=== PATIENT | male | born 1965 | race Caucasian/White ===

== ENCOUNTER → 2020-09-03 10:01 | Outpatient (CLI) | payer OTHER, SELFPAY ==
--- NOTE | ~2020-09-03 | MR_ITS ---
EXAMINATION: MR cervical spine wo con EXAM DATE: 09/03/2020 10:49 INDICATION: Neck pain with right hand paresthesia. TECHNIQUE: Multi-sequential, multiplanar MR images of the cervical spine were obtained without contra st. Axial T2, axial T2 MERGE sequence. Sagittal T1, T2, T2 fat saturation images also obtained. Th ere is no prior study for comparison. FINDINGS: The vertebral bodies are aligned in the AP dimension. Vertebral body and disc heights are well-maintained. There are no suspicious marrow signal abnormalities. The spinal cord signal intensit y and intrinsic morphology is normal. Cervicomedullary junction is normal in appearance. Paraspinal s oft tissue is unremarkable. Level by level evaluation: C2-C3: Disc does not extend beyond the endplate margin. Uncovertebral joint arthropathy: None. Facet joint arthropathy: Mild to moderate bilateral. Neural foraminal stenosis: No stenosis. Central canal stenosis: No stenosis. C3-C4: Disc does not extend beyond the endplate margin. Uncovertebral joint arthropathy: Mild bilateral. Facet joint arthropathy: Moderate bilateral. Neural foraminal stenosis: Mild bilateral. Central canal stenosis: No stenosis. C4-C5: Disc does not extend beyond the endplate margin. Uncovertebral joint arthropathy: Mild to moderate right, mild left. Facet joint arthropathy: Moderate to severe right, moderate left. Neural foraminal stenosis: Moderate right. Central canal stenosis: No stenosis. C5-C6: Disc does not extend beyond the endplate margin. Uncovertebral joint arthropathy: Mild to moderate bilateral. Facet joint arthropathy: Moderate right, mild left. Neural foraminal stenosis: Mild right. Central canal stenosis: No stenosis. C6-C7: There is a minimal diffuse disc bulge. Uncovertebral joint arthropathy: Moderate bilateral. Facet joint arthropathy: Mild to moderate bilateral. Neural foraminal stenosis: Moderate to severe left, mild to moderate right. Central canal stenosis: No stenosis. C7-T1: Disc does not extend beyond the endplate margin. Uncovertebral joint arthropathy: Mild to moderate bilateral. Facet joint arthropathy: Mild to moderate bilateral. Neural foraminal stenosis: No stenosis. Central canal stenosis: No stenosis. IMPRESSION: Cervical arthropathy and neural foraminal stenosis as above, with the left C6-7 neural fo ramina most narrowed Reviewed, dictated and finalized at location A. IMPRESSION: Cervical arthropathy and neural foraminal stenosis as above, with t he left C6-7 neural foramina most narrowed
== END ==
PROVIDERS: Visit Provider Internal Medicine
DX: M54.2 Cervicalgia (principal); R20.2 Paresthesia of skin
CPT/HCPCS: 72141

== ENCOUNTER 2020-09-29 15:30 | Outpatient (RCR) | payer OTHER, SELFPAY ==
--- NOTE | 2020-08-09 16:30 | PTOPEVAL ---
INITIAL PHYSICAL THERAPY EVALUATION and PLAN OF CARE Thank you for referring Keren Jimenez to [facility].? Keren is scheduled to be seen for physical therapy? 2x/week for 4 weeks. Please review, sign, date and return this plan of care FELISA. I agree with and certify that the following plan of care is medically necessary. Referring Physician Date Admitting Provider: Attending Provider: Flako Grimaldo, Referring Provider: *PT Outpatient Evaluation Start: 08/09/20 14:55 Freq: Status: Active Protocol: Document 08/09/20 14:55 ZIGGY (Rec: 08/09/20 16:27 ZIGGY [id number]) Therapy Assessment Status Assessment Status Assessment Status Evaluation Outpatient Past Medical History Past Medical History Source of Past Medical History Patient Cardiovascular History Hx Hypercholesterolemia Yes Hx Hypertension Yes Gastrointestinal History Hx Gastroesophageal Reflux Disease Yes Hx Hernia Yes: bilat - inguinal region Musculoskeletal History Hx Orthopedic Surgery Yes: bilat ACL's Evaluation Information Problem Diagnosis cervical dysfunction Onset 07/12/2020 Subjective Information At work - standing talking to Query Text:As Reported By Patient/ someone outside work zone - Family another worker was lifting a 24 steel culvert pipe - filled with mud - worker was shaking pipe - it fell off of machine - bounced down - then bounced towards [place] - end of pipe hit him in the face - split safety glasses, hit forehead - 14 stitches - went down to skull, no fracture. Immediately felt pain on both shoulders, R side went away, still having residual L sided discomfort. Neck feels like it wants to pop. Difficulty turning neck to L[place] neck will [place] up - can't move it until it pops. 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 If looks straight - neck will lock up. Sleeping - ok Mornings - stiffness - will feel popping sensation. Diagnostic Tests X-Rays For This Problem Yes Prior Level of Function Activity Level (Last 3 Months) Oc
--- NOTE | 2020-09-01 16:43 | PTOPEVAL ---
PHYSICAL THERAPY RE-EVALUATION and UPDATED PLAN OF CARE Thank you for referring Keren Jimenez to [facility].? Keren is scheduled to continue with physical therapy? 2x/week for 4 weeks. Please review, sign, date and return this plan of care FELISA. He has made progress in regards to cervical AROM, strength, decrease pain and functional abilities, but he still has L C7-5 cervical dysfunction as well as R C6 dermatome radicular symptoms while sleeping. I agree with and certify that the following plan of care is medically necessary. Referring Physician Date Admitting Provider: Attending Provider: Flako Grimaldo, MD Referring Provider: Therapy Assessment Status Assessment Status Assessment Status Re-evaluation Evaluation Information Problem Diagnosis cervical dysfunction Subjective Information Keren reports that he is being Query Text:As Reported By Patient/ awakened between 3-3:30 am Family with numbness into R hand - worse with thumb and index finger. He sleeps on his L side. If he straightens his neck - the symptoms go away. When he falls back to sleep - same thing will occur couple hours later. After returning to sleep - then can sleep until waking up time. He also will have episodes of neck locking up on him with his neck is stationary for long periods of time or with looking down. Pain Assessment Pain Scale Pain Scale Used Numeric (1 - 10) Self Report Pain Assessment Posterior Neck Reported Pain Level 0 Other Pain Description neck is stiff most of the time Lowest Pain Intensity 0 Greatest Pain Intensity 3 Pain Score Pain Score 0: Self Report Cervical and Lumbar ROM Cervical ROM Cervical Flexion (0-60) 55 Query Text:Active in Degrees Cervical Extension (0-70) 25 Query Text:Active in Degrees Cervical Lateral Flexion Right (0-50) 40 Query Text:Active in Degrees Cervical Lateral Flexion Left (0-50) 40 Query Text:Active in Degrees Cervical Rotation Right (0-90) 65 Query Text:Active in Degrees Cervical Rotation Left (0-90) 65 Query Text:Active in Degrees Cervical and Lumbar Muscle Testing Cervical Muscle Testing Deep Cervical Flexion 1 min 15 sec Palpation Assessment Palpation Palpation No increase in thoracic tenderness with P-A mob today. Stiffness present throughout mid section. Stiffness
--- NOTE | 2020-09-29 16:38 | PTOPEVAL ---
PHYSICAL THERAPY DISCHARGE SUMMARY Thank you for referring Keren Jimenez to [facility].? Keren has been seen x 14 visits. He has met all goals set, feeling good, and has returned to most of his usual activities. He is ready for d/c from PT to [facility]. It has been a pleasure working with Keren. I agree with Keren's discharge from PT. Referring Physician Date Admitting Provider: Attending Provider: Flako Grimaldo, Referring Provider: Therapy Assessment Status Assessment Status Assessment Status Discharge Evaluation Information Problem Diagnosis cervical dysfunction Subjective Information Keren states that he is doing Query Text:As Reported By Patient/ well. No locking sensation in Family neck with driving. Some tightness in the morning - but goes away. With movement - will sometimes get stuck - once he gets a pop - then neck loosens up and moves well. Pain Assessment ) Self Report Pain Assessment Posterior Neck Reported Pain Level 0 Lowest Pain Intensity 0 Greatest Pain Intensity 0 Cervical and Lumbar ROM Cervical ROM Cervical Flexion (0-60) 60 Query Text:Active in Degrees Cervical Extension (0-70) 50 Query Text:Active in Degrees Cervical Lateral Flexion Right (0-50) 40 Query Text:Active in Degrees Cervical Lateral Flexion Left (0-50) 40 Query Text:Active in Degrees Cervical Rotation Right (0-90) 65 Query Text:Active in Degrees Cervical Rotation Left (0-90) 65 Query Text:Active in Degrees Cervical and Lumbar Muscle Testing Cervical Muscle Testing Deep Cervical Flexion 1 min 41 sec Palpation Assessment Palpation Palpation Thoracic spine - symmetrical mobility, P-A mob testing - no discomfort T9-4 T2-C4 mobility - P-A and laterally - good mobility present with P-A mob C6,5 - still some radicular symptoms into L pectoralis region - but decreased in intensity from initial symptoms PT Clinical Summary Clinical Summary Protocol: PTEVCODE PT Clinical Summary Neck Disability Index - 8% Keren has done well in PT. He has met all goals set - full, symmetrical cervical AROM, increased thoracic and cervical segmental mobility, independent with HEP, and
== END 2020-10-27 14:44 | disposition home or self-care (01) ==
LOC: ANHHIPT 15:30
PROVIDERS: PCP Internal Medicine; Visit Provider Internal Medicine
DX: M54.2 Cervicalgia (principal)
CPT/HCPCS: 97110; 97140; 97161

== ENCOUNTER 2023-11-28 09:45 | Outpatient (RCR) | payer OTHER, SELFPAY ==
--- NOTE | 2023-09-19 17:04 | PTOPEVAL1 ---
Assessment and note entered by Rosalie Willett, PT Evaluation Information Assessment Status Evaluation Diagnosis dorsalgia unspecified, Pain in thoracic spine, cervicalgia Therapy conditions abnormal posture Onset July 2023 Subjective Information Pt presented to doctor 08/21/23 for back pain with injury within a week at the most. Was pulling concrete, is a significant amount of pull. Usually does this, doesn't usually have to bend because knees are shot . Reports felt a twinge, did a shoulder roll, felt it and then it got bad later that day. 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 Pt reports right rib cage has shooting pain trying to get in bed but then once getting into position will go away. Pt also reports pain in the upper thoracic hat has not gone away, and goes forward both sides to the clavicle. Reports has had issues with the left side deep muscles will shoot down to deep chest. Everything involves movement involving that place. Pt reports the shooting isn' t bad pain, It's just like there Muscle relaxers seems to help a little bit. When has really gotten tender they helped. Reported Pain Level Pain Score 1,0,0: Self Report Assessment PT Clinical Summary Pt presents to therapy with complaints of right rib/flank discomfort, and upper thoracic pain after injury at work approx one month ago. Demo's abnormal postural alignment, increased muscle tonicity, decresaed ROM and flexibility, and what appears to be rotated T2 and T10 likely causing facet impingement and discomfort with activities. Pt will benefit from physical therpay to address deficits, alignment, and stability to return to PLOF and prevent likelihood of reinjury in the future. Plan of Care Interventions Electrical Stimulation,Hot Pack/Cold Pack,Manual Therapy,Mechanical Traction,Neuro Re-education, Therapeutic Activities,Therapeutic Exercise,Self- Care/Home Management,Ultrasound PT Services Indicated Yes Treatment Frequency and 1-2x weekly x 12 visits Duration These treatments will address the objective and functional deficits as defined above. The patient will be advanced safely and appropriately in order for the patient to progress towards his/her prior level of function. Additional exercises will be introduced and as well as a compr
--- NOTE | 2023-09-19 17:04 | OPREHPOC ---
Outpatient Therapy Plan of Care This is a Multidisciplinary Plan of Care that may contain components documented by all disciplines (PT, OT, and ST.) PT Goal 1 Goal Pt will be independent in HEP Pt will verbalize understanding of diagnosis and prognosis Target Visit 6 PT Problem 2 PT Problem #2 Pain PT Goal 1 Goal Pt will report greatest pain level at 3/10 or less to improve ADLs and activities Target Visit 6 PT Goal 2 Goal Pt will report resolution of pain to return to PLOF Target Visit 12 PT Problem 3 PT Problem #3 Impaired Range of Motion PT Goal 1 Goal Pt will demo appropriate cervical segmental motion with active ROM testing Target Visit 6 PT Goal 2 Goal Pt will demo thoracic active ROM within normal limits without pain Target Visit 12 PT Problem 4 PT Problem #4 Impaired Functional Mobil PT Goal 1 Goal Pt will demo appropriate alignment throughout therapy session without cueing Target Visit 6 PT Goal 2 Goal Pt will report ability to perform approrpiate posture, alignment, and muscle activation while at work to decrease pain and decreased likelihood of reinjury Target Visit 12
--- NOTE | 2023-11-28 12:48 | PTOPDC ---
Assessment and note entered by Laureano Rae, SPT Assessment Status Discharge Diagnosis dorsalgia unspecified, Pain in thoracic spine, cervicalgia ICD-10 Condition Codes (PT) Cervicalgia M54.2,M54.6 Onset July 2023 Subjective Information Pt reports that the original pain in the upper back has resolved 3 weeks ago. The pain then moved to the front of the shoulder and chest which pain increased with turning head to the right. Pt feels he has been relatively pain free for about a week. He states he has had a few tough days at work and the back has held up. Pt states if he does have pain or soreness the stretches have helped. Reported Pain Level Pain Score 0,0,0,0: Self Report Assessment PT Clinical Summary Pt reports to physical therapy for a re-evaluation . Keren reports a resolution of pain in the upper back, R shoulder and chest for the past week. He states he still has some stiffness near the ribs in the morning but it resolves quickly. He has been performing all work duties with no notable increase in pain and feels he is more aware of his body positioning while at work. Upon objective measures he shows improvement in all plane of cervical ROM and only has limits in thoracic side bending with no pain reproduction. Keren feels confident in his HEP to continue scapular strengthening and was educated on stretches and warm up routine to perform while at work. Keren met all therapy goals and is discharged from physical therapy. Plan of Care PT Services Indicated No
== END 2023-11-28 14:58 | disposition home or self-care (01) ==
LOC: ANHHIPT 09:45
PROVIDERS: PCP Physician Assistant Medical; Visit Provider Family Medicine
DX: M54.9 Dorsalgia, unspecified (principal); M54.6 Pain in thoracic spine; M54.2 Cervicalgia
CPT/HCPCS: 97014; 97110; 97140; 97161; 97530; 97750; G0283